=== PATIENT | male | born 1945 | race Caucasian/White ===

== ENCOUNTER 2017-03-23 21:49 | Inpatient (IN) | payer MEDICARE ==
[~2017-03-23] VITALS: Ht 172.7 cm; Wt 69.9 kg
[~2017-03-23 21:49] MED LIST: LOSA100T3 PO
[2017-03-23] MEDS ORDERED: NITROGLYCERIN 0.4 MG/TAB BOTTLE ONE (22:19)
--- NOTE | 2017-03-23 22:20 | NUR ---
PT ARRIVED WITH CHEST PAIN RADIATING TO LEFT ARM AND BACK. PAIN 4/10. PT STATES HE TOOK 700 MG OF ASPIRIN AT HOME. CONNECTED TO MONITOR, EKG DONE, IV STARTED AT RAC 20G AND LABS DRAWN.
--- NOTE | 2017-03-23 22:21 | NUR ---
PT GIVEN SL NITRO FOR CHEST PAIN RADIATING TO LEFT ARM AND BACK.
--- NOTE | 2017-03-23 22:26 | NUR ---
PT DENIES PAIN AFTER ONE NITRO DOSE.
[2017-03-23 22:29] LABS: BASOPHILS # (AUTO) 0.1 /CMM (0.0-0.2); BASOPHILS % (AUTO) 0.7 % (0.0-2.0); EOSINOPHILS # (AUTO) 0.8 /CMM (0.0-0.7); EOSINOPHILS % (AUTO) 8.1 % (0.0-6.0); HEMATOCRIT 42 % (39-51); HEMOGLOBIN 13.8 g/dL (13.5-17.5); LYMPHOCYTES # (AUTO) 3.1 /CMM (0.8-4.8); LYMPHOCYTES % (AUTO) 31.9 % (20.0-44.0); MEAN CORPUSCULAR HEMOGLOBIN 31 PG (26.0-33.0); MEAN CORPUSCULAR HGB CONC 33 g/dl (31.0-36.0); MEAN CORPUSCULAR VOLUME 93 fL (80-96); MONOCYTES # (AUTO) 0.7 /CMM (0.1-1.30); MONOCYTES % (AUTO) 6.9 % (2.0-12.0); NEUTROPHILS % (AUTO) 52.4 % (43.0-81.0); PLATELET COUNT (AUTO) 233 /CMM (150-450); RDW COEFFICIENT OF VARIATION 12.5 (11.5-15.0); RED BLOOD CELL COUNT(AUTO) 4.45 MIL/uL (4.5-6.0); WHITE BLOOD COUNT (AUTO) 9.6 K/uL (4.3-11.0)
[2017-03-23] MEDS ORDERED: NITROGLYCERIN 0.4 MG/TAB BOTTLE SL ONE (22:30)
[2017-03-23] MEDS ORDERED: ASPIRIN 325 MG TABLET PO ONE (22:30)
[2017-03-23 22:41] LABS: CALCIUM, SERUM 8.7 mg/dL (8.5-10.1); CARBON DIOXIDE 28 mmol/L (21-32); CHLORIDE 105 mmol/L (98-107); CREATININE 0.8 mg/dL (0.6-1.3); GLUCOSE 94 mg/dL (74-106); POTASSIUM 3.7 mmol/L (3.5-5.1); SODIUM SERUM 139 mmol/L (136-145); UREA NITROGEN, BLOOD 23 mg/dL (7-18)
[2017-03-23 22:50] LABS: D-DIMER < 0.19 mg/L(FEU (0.17-0.50); PARTIAL THROMBOPLASTIN TIME 27 SEC (23-34); PROTHROMBIN TIME 9.4 SECS (9.5-12.7); TROPONIN I 1.287 ng/mL (0.00-0.056)
--- NOTE | 2017-03-23 23:48 | NUR ---
PT REMAINS CALM AND WITHOUT PAIN AT THIS TIME. PT INSISTED ON WALKING TO BATHROOM EVEN AFTER EDUCATION OF RISKS OF FAINTING AND FALLING. ASSISTED TO BATHROOM WITHOUT INCIDENT.
--- NOTE | 2017-03-24 00:20 | NUR ---
REPORT GIVEN TO YOLIE RAVI.
[2017-03-24 00:30] VITALS: BP 90/53
[2017-03-24] MEDS ORDERED: ENOXAPARIN SODIUM 60 MG/0.6 ML DISP.SYRIN SQ ONE (00:30)
[2017-03-24] MEDS ORDERED: ENOXAPARIN SODIUM 80 MG/0.8 ML DISP.SYRIN SQ ONE (00:31)
[2017-03-24 00:35] VITALS: BP 90/53
--- NOTE | 2017-03-24 00:35 | NUR ---
RN NOTES RECEIVED PATIENT FROM ER FOR DX CHEST PAIN. AO X 3, ABLE TO MAKE NEEDS KNOW. NO ACUTE DISTRESS NOTED. SINUS RHYTHM HR 51. SKIN INTACT. DENIES ANY PAIN AT THIS TIME. ON LOW BED WITH BILATERAL UPPER SIDE RAILS UP. CALL LIGHT WITHIN EASY REACH. WILL CONTINUE TO MONITOR. WAITING FOR ADMISSION ORDERS.
--- NOTE | 2017-03-24 00:40 | NUR ---
PT TRANSPORTED TO ROOM 304-2 WITH ACLS PROTOCOL WITH EMT AND RN.
[2017-03-24] MEDS ORDERED: ACETAMINOPHEN 325 MG TABLET PO PRN (01:30)
[2017-03-24] MEDS ORDERED: MAGNESIUM HYDROXIDE 30 ML UDC PO PRN (01:30)
[2017-03-24] MEDS ORDERED: Z GUARD REMEDY 2 OZ OINT TP PRN (01:30)
[2017-03-24] MEDS ORDERED: ONDANSETRON HCL/PF 4 MG/2 ML VIAL IVP PRN (01:30)
[2017-03-24] MEDS ORDERED: MAG HYDROX/AL HYDROX/SIMETH 30 ML UDC PO PRN (01:30)
[2017-03-24] MEDS ORDERED: ZOLPIDEM TARTRATE 5 MG TABLET PO PRN (01:30)
[2017-03-24 04:00] VITALS: BP 98/55
--- NOTE | 2017-03-24 05:35 | NUR ---
RN NOTES RELAYED TROPONIN LEVEL 6.[address] DE GUZMAN WITH NEW ORDER FOR CTA OF CHEST FOR DISSECTION, NOTED AND CARRIED OUT.
[2017-03-24] MEDS ORDERED: HYDROCODONE/APAP 5/325MG 1 EACH TABLET ONE (05:45)
[2017-03-24] MEDS: HYDROCODONE/APAP 5/325MG 1 EACH TABLET PO PRN ×2 (05:52→10:19)
--- NOTE | 2017-03-24 06:19 | NUR ---
RN NOTES PATIENT AWAKE; RESPIRATIONS EVEN. NEEDS ATTENDED. NPO IN ANTICIPATION OF CTA OF CHEST. SAFETY PRECAUTIONS AND COMFORT MEASURES IN PLACE. WILL GIVE REPORT TO DAY SHIFT FOR CONTINUITY OF CARE.
--- NOTE | 2017-03-24 07:27 | NUR ---
ENVIRONMENTAL ENGINEERING ASSISTANT NOTES RECEIVED PATIENT IN BED AWAKE, A/OX4. NO ACUTE DISTRESS, NO SOB NOTED. DENIES PAIN OR DISCOMFORT. IV SITE INTACT AND PATENT. KEPT PATIENT SAFE AND COMFORTABLE. BED IN LOW POSITION, LOCKED, SIDERAILS UPX2. CALL LIGHT IN REACH. WILL CONTINUE TO MONITOR ACCORDINGLY. Addendum: 03/24/17 at 0739 by DRU MEEK NO CHEST PAIN NOTED. ON TELE SB 59 WITH PAC 1ST DEGREE AV BLOCK
[2017-03-24 08:00] VITALS: BP 90/53
[2017-03-24] MEDS ORDERED: LOSARTAN POTASSIUM 50 MG TABLET PO SCH (09:00)
[2017-03-24] MEDS ORDERED: IV NS 0.9% 1,000 ML IV PRN (09:24)
[2017-03-24] MEDS ORDERED: CARVEDILOL 3.125 MG TABLET PO SCH (09:30)
[2017-03-24] MEDS ORDERED: ASPIRIN 81 MG TAB.CHEW PO SCH (09:30)
[2017-03-24] MEDS ORDERED: ATORVASTATIN 40 MG TABLET PO SCH (09:30)
--- NOTE | 2017-03-24 09:40 | NUR ---
RN NOTES PER LEXI RAY TO GIVE MEDICATIONS.
[2017-03-24] MEDS ORDERED: POTASSIUM CHLORIDE 20 MEQ TAB.PRT.SR PO SCH (10:00)
--- NOTE | 2017-03-24 10:00 | NUR ---
RN NOTES DR FLETCHER ON BEDSIDE TALKING TO PATIENT. PATIENT IS STABLE, NO CHEST PAIN NOTED.
[2017-03-24 11:06] LABS: PHOSPHORUS 3.1 mg/dL (2.5-4.9)
[2017-03-24 11:17] LABS: THYROID STIMULATING HORMONE 0.878 uIU/mL (0.358-3.74)
--- NOTE | 2017-03-24 11:30 | NUR ---
RN NOTES NOTIFIED DR FLETCHER REGARDING ELEVATED TROPONIN LEVELS. WILL MONITOR ACCORDINGLY
[2017-03-24 12:00] VITALS: BP 98/51
[2017-03-24] MEDS ORDERED: ENOXAPARIN SODIUM 80 MG/0.8 ML DISP.SYRIN SQ SCH (12:00)
[2017-03-24 15:00] VITALS: BP 100/55
--- NOTE | 2017-03-24 15:15 | NUR ---
RN NOTES DISCHARGE PATIENT IN STABLE CONDITION ACCOMPANIED BY SHOE REPAIRMAN. DISCHARGE INSTRUCTIONS/TEACHING GIVEN, PATIENT VERBALIZED UNDERSTANDING. REPORT GIVEN TO BREONNA RODRIGUEZ FROM [facility]. D/C IV SITE, NO COMPLICATIONS, NO BLEEDING NOTED.
== END 2017-03-24 15:34 | disposition short-term general hospital (02) | DRG 280 ==
LOC: ER 21:51 → TELE 03-24 00:11
PROVIDERS: ADMIT Family Medicine; ATTEND Family Medicine
DX: I21.4 Non-ST elevation (NSTEMI) myocardial infarction (principal); N17.0 Acute kidney failure with tubular necrosis; N13.2 Hydronephrosis with renal and ureteral calculous obstruction; K76.89 Other specified diseases of liver; I10 Essential (primary) hypertension; N40.0 Benign prostatic hyperplasia without lower urinary tract symptoms; Z79.899 Other long term (current) drug therapy; Z98.890 Other specified postprocedural states; I44.0 Atrioventricular block, first degree; I25.10 Atherosclerotic heart disease of native coronary artery without angina pectoris; Z79.82 Long term (current) use of aspirin
CPT/HCPCS: 36415; 71010-TC; 80048-TC; 80061-TC; 83735-TC; 84100-TC; 84439-TC; 84443-TC; 84484-TC; 85025-TC; 85378-TC; 85730-TC; 87081-TC; J1650

== ENCOUNTER 2023-04-12 18:29 | Inpatient (IN) | payer MEDICARE ==
[~2023-04-12] VITALS: Ht 172.7 cm; Wt 59.0 kg
[2023-04-12] MEDS ORDERED: PANTOPRAZOLE 40 MG VIAL ONE ×2 (18:56→21:33)
[2023-04-12] MEDS ORDERED: IV NS 0.9% 1,000 ML BAG IV ONE (19:00)
[2023-04-12] MEDS ORDERED: PANTOPRAZOLE 40 MG VIAL IV ONE (19:00)
[2023-04-12] MEDS ORDERED: MORPHINE SULFATE INJ 2 MG/ML DISP.SYRIN IV ONE ×2 (20:00→21:00)
[2023-04-12] MEDS ORDERED: MORPHINE SULFATE INJ 2 MG/ML DISP.SYRIN ONE (20:00)
[2023-04-12 20:58] LABS: BASOPHILS % (AUTO) 0.1 % (0.0-2.0); LYMPHOCYTES # (AUTO) 1.3 K/uL (0.8-4.8); LYMPHOCYTES % (AUTO) 8.1 % (20.0-44.0); MEAN CORPUSCULAR HEMOGLOBIN 30 PG (26.0-33.0); MEAN CORPUSCULAR HGB CONC 32 g/dl (31.0-36.0); MEAN CORPUSCULAR VOLUME 93 fL (80-96); MONOCYTES # (AUTO) 0.8 K/uL (0.1-1.30); MONOCYTES % (AUTO) 4.9 % (2.0-12.0); NEUTROPHILS # (AUTO) 14.4 K/uL (1.8-8.9); NEUTROPHILS % (AUTO) 86.9 % (43.0-81.0); PLATELET COUNT (AUTO) 150 K/uL (150-450); RED CELL DISTRIBUTION WIDTH 13.9 % (11.5-15.0); WHITE BLOOD COUNT (AUTO) 16.6 K/uL (4.3-11.0)
[2023-04-12 21:08] LABS: CARBON DIOXIDE 27 mmol/L (21-32); CHLORIDE 107 mmol/L (98-107); GLUCOSE 163 mg/dL (74-106); POTASSIUM 4.1 mmol/L (3.5-5.1); SODIUM SERUM 140 mmol/L (136-145); UREA NITROGEN, BLOOD 45 mg/dL (7-18)
[2023-04-12] MEDS ORDERED: MORPHINE SULFATE INJ 4 MG/ML DISP.SYRIN ONE (21:08)
[2023-04-12 21:14] LABS: ALANINE AMINOTRANSFERASE 14 U/L (12-78); ALBUMIN 2.7 g/dL (3.4-5.0); ALKALINE PHOSPHATASE 52 U/L (46-116); ASPARTATE AMINOTRANSFERASE 12 U/L (15-37); BILIRUBIN,DIRECT 0.2 mg/dL (0.0-0.2); LIPASE 14 U/L (16-77); TOTAL PROTEIN, SERUM 5.1 g/dL (6.4-8.2)
[2023-04-12 21:17] LABS: RED BLOOD CELL COUNT(AUTO) 1.92 MIL/uL (4.5-6.0)
[2023-04-12 21:18] LABS: HEMATOCRIT 18 % (39-51); HEMOGLOBIN 5.7 g/dL (13.5-17.5)
[2023-04-12 21:22] LABS: INR 1.11 (0.91-1.10); PARTIAL THROMBOPLASTIN TIME 21.5 SEC (24.3-34.3); PROTHROMBIN TIME 11.7 SECS (9.2-11.1)
[2023-04-12] MEDS ORDERED: METRONIDAZOLE 500MG/ NS 100ML 100 ML IV ONE (21:30)
[2023-04-12] MEDS ORDERED: OCTREOTIDE 1,250 MCG in IV NS 0.9% 250 ML IV ONE (21:30)
[2023-04-12] MEDS ORDERED: METOCLOPRAMIDE HCL 10 MG/2 ML VIAL IV ONE (21:30)
[2023-04-12] MEDS ORDERED: PANTOPRAZOLE 80 MG in IV NS 0.9% 100 ML IV ONE (21:30)
[2023-04-12] MEDS ORDERED: CEFTRIAXONE 1 G in IV D5W 50 ML IV ONE (21:30)
[2023-04-12] MEDS ORDERED: METOCLOPRAMIDE HCL 10 MG/2 ML VIAL ONE (21:31)
[2023-04-12] MEDS ORDERED: CEFTRIAXONE 1GM BAG (ER ONLY) 50 ML IV ONE (21:33)
[2023-04-12 21:39] LABS: BAND % (MANUAL) 1 % (0.0-5.0); LYMPHOCYTES % (MANUAL) 8 % (16-48); MONOCYTES % (MANUAL) 4 % (0-11.0); NEUTROPHILS % (MANUAL) 86 (42-76); REACTIVE LYMPHOCYTES 1 % (0-0)
[2023-04-12 21:40] LABS: ANISOCYTOSIS 1+; PLATELET ESTIMATE ADEQUATE
[2023-04-12] MEDS ORDERED: IV NS 0.9% 1,000 ML IV ONE (22:00)
[2023-04-12] MEDS ORDERED: OCTREOTIDE 100 MCG/ML VIAL ONE ×3 (22:09→22:26)
[2023-04-12] MEDS ORDERED: OCTREOTIDE 500 MCG/ML VIAL ONE (22:10)
[2023-04-12] MEDS ORDERED: ONDANSETRON HCL/PF 4 MG/2 ML VIAL IVP PRN (22:30)
[2023-04-12] MEDS ORDERED: OCTREOTIDE 50 MCG in IV NS 0.9% 50 ML IJ ONE (22:30)
[2023-04-12] MEDS ORDERED: PANTOPRAZOLE 80 MG in IV NS 0.9% 500 ML IV PRN (22:30)
[2023-04-12] MEDS ORDERED: MAG HYDROX/AL HYDROX/SIMETH 30 ML UDC PO PRN (22:30)
[2023-04-12] MEDS ORDERED: Z GUARD REMEDY 4 OZ OINT TP PRN (22:30)
[2023-04-12 23:30] VITALS: BP 122/62; O2SAT 97
[2023-04-12] MEDS: IV D5/0.45 NACL 1,000 ML IV PRN (23:37)
[2023-04-12 23:45] VITALS: BP 126/65; O2SAT 98
[2023-04-13] VITALS (77 sets, daily range): BP systolic 100–164; BP diastolic 45–77; TEMP 97.3–99.1; O2SAT 95–99
[2023-04-13] MEDS: OCTREOTIDE 1,250 MCG in IV NS 0.9% 247.5 ML IV PRN ×2 (00:29→11:09)
[2023-04-13] MEDS: MORPHINE SULFATE INJ 2 MG/ML DISP.SYRIN IV PRN ×4 (02:40→19:51)
[2023-04-13] MEDS ORDERED: METRONIDAZOLE 500MG/ NS 100ML 100 ML IV ONE (05:30)
[2023-04-13] MEDS: METRONIDAZOLE 500MG/ NS 100ML 500 MG in PREMIX 1 EA IV SCH ×3 (05:39→20:39)
[2023-04-13 05:46] LABS: BASOPHILS % (AUTO) 0.2 % (0.0-2.0); LYMPHOCYTES # (AUTO) 1.5 K/uL (0.8-4.8); LYMPHOCYTES % (AUTO) 11.8 % (20.0-44.0); MEAN CORPUSCULAR HEMOGLOBIN 30 PG (26.0-33.0); MEAN CORPUSCULAR HGB CONC 33 g/dl (31.0-36.0); MEAN CORPUSCULAR VOLUME 92 fL (80-96); MONOCYTES # (AUTO) 0.9 K/uL (0.1-1.30); MONOCYTES % (AUTO) 7.5 % (2.0-12.0); NEUTROPHILS # (AUTO) 10.1 K/uL (1.8-8.9); NEUTROPHILS % (AUTO) 80.5 % (43.0-81.0); PLATELET COUNT (AUTO) 115 K/uL (150-450); RED CELL DISTRIBUTION WIDTH 13.7 % (11.5-15.0); WHITE BLOOD COUNT (AUTO) 12.6 K/uL (4.3-11.0)
[2023-04-13 05:47] LABS: RED BLOOD CELL COUNT(AUTO) 1.99 MIL/uL (4.5-6.0)
[2023-04-13 05:49] LABS: CALCIUM, SERUM 7.4 mg/dL (8.5-10.1); CARBON DIOXIDE 26 mmol/L (21-32); CHLORIDE 109 mmol/L (98-107); CREATININE 0.7 mg/dL (0.6-1.3); GLUCOSE 182 mg/dL (74-106); PHOSPHORUS 3.6 mg/dL (2.5-4.9); POTASSIUM 4.2 mmol/L (3.5-5.1); SODIUM SERUM 142 mmol/L (136-145); UREA NITROGEN, BLOOD 38 mg/dL (7-18)
[2023-04-13 05:51] LABS: HEMATOCRIT 18 % (39-51)
[2023-04-13 10:48] LABS: ANISOCYTOSIS 1+; BAND % (MANUAL) 2 % (0.0-5.0); BASOPHILS % (MANUAL) 0 % (0.0-2.0); EOSINOPHILS % (MANUAL) 0 % (0-4); HYPOCHROMASIA 1+; LYMPHOCYTES % (MANUAL) 14 % (16-48); MONOCYTES % (MANUAL) 8 % (0-11.0); NEUTROPHILS % (MANUAL) 76 (42-76); PLATELET ESTIMATE DECREASED
[2023-04-13] MEDS: PANTOPRAZOLE 40 MG VIAL IV SCH ×2 (11:08→20:39)
[2023-04-13] MEDS ORDERED: CLOP75TA15 PO (11:11)
[2023-04-13] MEDS ORDERED: AMLO-212 PO (11:28)
[2023-04-13] MEDS ORDERED: CARV25TA2 PO (11:28)
[2023-04-13] MEDS ORDERED: ATOR40TA PO (11:28)
[2023-04-13] MEDS ORDERED: TRAZ-182 PO (11:28)
[2023-04-13] MEDS ORDERED: ESCI5TAB PO (11:28)
[2023-04-13 16:23] LABS: HEMOGLOBIN 6.2 g/dL (13.5-17.5)
[2023-04-13] MEDS: IV D5/0.45 NACL 1,000 ML IV PRN (16:53)
[2023-04-13] MEDS ORDERED: ANESTHESIA TRAY IN PYXIS 1 EA TRAY MC ONE (17:32)
[2023-04-13] MEDS ORDERED: EPINEPHRINE (1:1000) 1 MG/ML AMPUL ONE (18:19)
[2023-04-13] MEDS ORDERED: EPINEPHRINE (1:10,000) SYRINGE 1 MG/10 ML DISP.SYRIN ONE (18:19)
[2023-04-13 21:38] LABS: HEMOGLOBIN 7.5 g/dL (13.5-17.5)
[2023-04-13] MEDS: LORAZEPAM INJ 2 MG/ML VIAL IV PRN (22:30)
[2023-04-13] MEDS: CEFTRIAXONE 1 G in IV D5W 50 ML IV SCH (22:35)
[2023-04-14] VITALS (30 sets, daily range): BP systolic 114–167; BP diastolic 54–71; TEMP 98–98.6; O2SAT 96–99
[2023-04-14] MEDS ORDERED: CELLULOSE,OXIDIZED 1 PKT EACH MC ONE (01:00)
[2023-04-14] MEDS: MORPHINE SULFATE INJ 2 MG/ML DISP.SYRIN IV PRN ×4 (01:32→20:20)
[2023-04-14 05:21] LABS: CALCIUM, SERUM 7.7 mg/dL (8.5-10.1); CREATININE 0.7 mg/dL (0.6-1.3); POTASSIUM 3.9 mmol/L (3.5-5.1)
[2023-04-14 05:36] LABS: BASOPHILS # (AUTO) 0.1 K/uL (0.0-0.2); BASOPHILS % (AUTO) 0.6 % (0.0-2.0); EOSINOPHILS % (AUTO) 0.3 % (0.0-6.0); HEMATOCRIT 23 % (39-51); HEMOGLOBIN 7.6 g/dL (13.5-17.5); LYMPHOCYTES # (AUTO) 1.6 K/uL (0.8-4.8); LYMPHOCYTES % (AUTO) 16.4 % (20.0-44.0); MEAN CORPUSCULAR HEMOGLOBIN 30 PG (26.0-33.0); MEAN CORPUSCULAR HGB CONC 33 g/dl (31.0-36.0); MEAN CORPUSCULAR VOLUME 90 fL (80-96); MONOCYTES # (AUTO) 1.1 K/uL (0.1-1.30); MONOCYTES % (AUTO) 11.4 % (2.0-12.0); NEUTROPHILS # (AUTO) 7.1 K/uL (1.8-8.9); NEUTROPHILS % (AUTO) 71.3 % (43.0-81.0); PLATELET COUNT (AUTO) 92 K/uL (150-450); RED BLOOD CELL COUNT(AUTO) 2.55 MIL/uL (4.5-6.0); RED CELL DISTRIBUTION WIDTH 14.8 % (11.5-15.0)
[2023-04-14] MEDS: METRONIDAZOLE 500MG/ NS 100ML 500 MG in PREMIX 1 EA IV SCH ×3 (05:37→19:52)
[2023-04-14] MEDS: PANTOPRAZOLE 40 MG VIAL IV SCH ×2 (07:58→20:19)
[2023-04-14] MEDS: IV D5/0.45 NACL 1,000 ML IV PRN (07:58)
[2023-04-14 09:56] LABS: HEMOGLOBIN 7.7 g/dL (13.5-17.5)
[2023-04-14 10:16] LABS: ANISOCYTOSIS 1+; BAND % (MANUAL) 2 % (0.0-5.0); BASOPHILS % (MANUAL) 0 % (0.0-2.0); EOSINOPHILS % (MANUAL) 0 % (0-4); LYMPHOCYTES % (MANUAL) 14 % (16-48); MONOCYTES % (MANUAL) 10 % (0-11.0); NEUTROPHILS % (MANUAL) 74 (42-76); PLATELET ESTIMATE DECREASED
[2023-04-14] MEDS: CEFTRIAXONE 1 G in IV D5W 50 ML IV SCH (21:02)
[2023-04-14] MEDS: ZOLPIDEM TARTRATE 5 MG TABLET PO PRN (22:03)
[2023-04-15] VITALS (13 sets, daily range): BP systolic 123–142; BP diastolic 53–74; TEMP 98.1–98.8; O2SAT 96–98
[2023-04-15] MEDS: IV D5/0.45 NACL 1,000 ML IV PRN ×2 (00:13→16:23)
[2023-04-15] MEDS: LORAZEPAM INJ 2 MG/ML VIAL IV PRN ×2 (01:06→16:40)
[2023-04-15 05:00] LABS: BASOPHILS # (AUTO) 0.1 K/uL (0.0-0.2); BASOPHILS % (AUTO) 0.7 % (0.0-2.0); EOSINOPHILS # (AUTO) 0.3 K/uL (0.0-0.7); EOSINOPHILS % (AUTO) 3.1 % (0.0-6.0); HEMATOCRIT 21 % (39-51); LYMPHOCYTES # (AUTO) 2.1 K/uL (0.8-4.8); LYMPHOCYTES % (AUTO) 23.1 % (20.0-44.0); MEAN CORPUSCULAR HEMOGLOBIN 31 PG (26.0-33.0); MEAN CORPUSCULAR HGB CONC 33 g/dl (31.0-36.0); MEAN CORPUSCULAR VOLUME 93 fL (80-96); MONOCYTES # (AUTO) 0.9 K/uL (0.1-1.30); MONOCYTES % (AUTO) 10.4 % (2.0-12.0); NEUTROPHILS # (AUTO) 5.6 K/uL (1.8-8.9); NEUTROPHILS % (AUTO) 62.7 % (43.0-81.0); PLATELET COUNT (AUTO) 102 K/uL (150-450); RED CELL DISTRIBUTION WIDTH 14.6 % (11.5-15.0); WHITE BLOOD COUNT (AUTO) 8.9 K/uL (4.3-11.0)
[2023-04-15 05:25] LABS: CALCIUM, SERUM 7.6 mg/dL (8.5-10.1); CARBON DIOXIDE 25 mmol/L (21-32); CHLORIDE 107 mmol/L (98-107); CREATININE 0.6 mg/dL (0.6-1.3); GLUCOSE 102 mg/dL (74-106); POTASSIUM 3.3 mmol/L (3.5-5.1); SODIUM SERUM 139 mmol/L (136-145); UREA NITROGEN, BLOOD 11 mg/dL (7-18)
[2023-04-15] MEDS: METRONIDAZOLE 500MG/ NS 100ML 500 MG in PREMIX 1 EA IV SCH (05:35)
[2023-04-15] MEDS: PANTOPRAZOLE 40 MG VIAL IV SCH ×2 (08:28→20:56)
[2023-04-15] MEDS: POTASSIUM CL. PREMIX PERIPHER. 50 ML IV SCH ×2 (08:29→09:41)
[2023-04-15] MEDS: METRONIDAZOLE 500 MG TABLET PO SCH ×2 (13:09→20:56)
[2023-04-15] MEDS: MORPHINE SULFATE INJ 2 MG/ML DISP.SYRIN IV PRN (16:25)
[2023-04-15] MEDS: CEFTRIAXONE 1 G in IV D5W 50 ML IV SCH (21:20)
[2023-04-15] MEDS: ZOLPIDEM TARTRATE 5 MG TABLET PO PRN (23:24)
[2023-04-16] VITALS: BP 126/62; TEMP 98.2; O2SAT 98
[2023-04-16 04:00] VITALS: BP 133/66; TEMP 98.7; O2SAT 98
[2023-04-16] MEDS: METRONIDAZOLE 500 MG TABLET PO SCH ×3 (04:12→21:09)
[2023-04-16 05:53] LABS: BASOPHILS % (AUTO) 0.6 % (0.0-2.0); EOSINOPHILS # (AUTO) 0.2 K/uL (0.0-0.7); EOSINOPHILS % (AUTO) 3.2 % (0.0-6.0); HEMATOCRIT 22 % (39-51); HEMOGLOBIN 7.3 g/dL (13.5-17.5); LYMPHOCYTES # (AUTO) 1.1 K/uL (0.8-4.8); LYMPHOCYTES % (AUTO) 15.7 % (20.0-44.0); MEAN CORPUSCULAR HEMOGLOBIN 30 PG (26.0-33.0); MEAN CORPUSCULAR HGB CONC 33 g/dl (31.0-36.0); MEAN CORPUSCULAR VOLUME 91 fL (80-96); MONOCYTES # (AUTO) 0.7 K/uL (0.1-1.30); MONOCYTES % (AUTO) 9.8 % (2.0-12.0); NEUTROPHILS % (AUTO) 70.7 % (43.0-81.0); PLATELET COUNT (AUTO) 127 K/uL (150-450); RED BLOOD CELL COUNT(AUTO) 2.43 MIL/uL (4.5-6.0); WHITE BLOOD COUNT (AUTO) 7.1 K/uL (4.3-11.0)
[2023-04-16 06:12] LABS: CALCIUM, SERUM 7.5 mg/dL (8.5-10.1); CARBON DIOXIDE 26 mmol/L (21-32); CHLORIDE 104 mmol/L (98-107); CREATININE 0.6 mg/dL (0.6-1.3); GLUCOSE 89 mg/dL (74-106); POTASSIUM 2.9 mmol/L (3.5-5.1); SODIUM SERUM 138 mmol/L (136-145); UREA NITROGEN, BLOOD 6 mg/dL (7-18)
[2023-04-16] MEDS ORDERED: POTASSIUM CL. PREMIX PERIPHER. 50 ML IV SCH (07:00)
[2023-04-16] MEDS ORDERED: POTASSIUM CHLORIDE 20 MEQ POWDER PACKET PO ONE (07:00)
[2023-04-16 08:00] VITALS: BP 142/69; TEMP 97.2; O2SAT 99
[2023-04-16] MEDS: PANTOPRAZOLE 40 MG VIAL IV SCH ×2 (08:24→21:01)
[2023-04-16 12:00] VITALS: BP 131/64; TEMP 98.4; O2SAT 99
[2023-04-16 16:00] VITALS: BP 131/70; TEMP 98.1; O2SAT 100
[2023-04-16] MEDS: IV D5/0.45 NACL 1,000 ML IV PRN (16:25)
[2023-04-16] MEDS: MORPHINE SULFATE INJ 2 MG/ML DISP.SYRIN IV PRN ×2 (16:28→21:53)
[2023-04-16 20:00] VITALS: BP 135/68; TEMP 98.5; O2SAT 100
[2023-04-16] MEDS: CEFTRIAXONE 1 G in IV D5W 50 ML IV SCH (21:10)
[2023-04-16] MEDS: ZOLPIDEM TARTRATE 5 MG TABLET PO PRN (21:16)
[2023-04-17 01:25] VITALS: BP 120/61; TEMP 99.1; O2SAT 97
[2023-04-17] MEDS: MORPHINE SULFATE INJ 2 MG/ML DISP.SYRIN IV PRN ×2 (01:56→09:34)
[2023-04-17 04:11] VITALS: BP 133/64; TEMP 99.2; O2SAT 97
[2023-04-17] MEDS: METRONIDAZOLE 500 MG TABLET PO SCH ×2 (05:31→12:10)
[2023-04-17 07:17] LABS: BASOPHILS % (AUTO) 0.4 % (0.0-2.0); EOSINOPHILS # (AUTO) 0.5 K/uL (0.0-0.7); EOSINOPHILS % (AUTO) 8.1 % (0.0-6.0); HEMATOCRIT 22 % (39-51); HEMOGLOBIN 7.2 g/dL (13.5-17.5); LYMPHOCYTES # (AUTO) 1.3 K/uL (0.8-4.8); LYMPHOCYTES % (AUTO) 21.3 % (20.0-44.0); MEAN CORPUSCULAR HEMOGLOBIN 30 PG (26.0-33.0); MEAN CORPUSCULAR HGB CONC 33 g/dl (31.0-36.0); MEAN CORPUSCULAR VOLUME 91 fL (80-96); MONOCYTES # (AUTO) 0.7 K/uL (0.1-1.30); MONOCYTES % (AUTO) 11.5 % (2.0-12.0); NEUTROPHILS # (AUTO) 3.5 K/uL (1.8-8.9); NEUTROPHILS % (AUTO) 58.7 % (43.0-81.0); PLATELET COUNT (AUTO) 131 K/uL (150-450); RED BLOOD CELL COUNT(AUTO) 2.37 MIL/uL (4.5-6.0); RED CELL DISTRIBUTION WIDTH 15.8 % (11.5-15.0); WHITE BLOOD COUNT (AUTO) 5.9 K/uL (4.3-11.0)
[2023-04-17 07:31] LABS: CREATININE 0.6 mg/dL (0.6-1.3); POTASSIUM 3.2 mmol/L (3.5-5.1)
[2023-04-17 08:00] VITALS: BP 126/63; TEMP 98.8; O2SAT 98
[2023-04-17 08:02] LABS: CALCIUM, SERUM 7.3 mg/dL (8.5-10.1)
[2023-04-17] MEDS ORDERED: PANT40TA2 PO (08:28)
[2023-04-17] MEDS ORDERED: POTASSIUM CHLORIDE 20 MEQ TAB.PRT.SR PO ONE (08:30)
[2023-04-17] MEDS ORDERED: FERR325T23 PO (08:30)
[2023-04-17] MEDS: PANTOPRAZOLE 40 MG VIAL IV SCH (08:57)
[2023-04-17] MEDS ORDERED: ENSURE ENLIVE 237 ML LIQUID (VANILLA) PO SCH (09:00)
[2023-04-17 12:00] VITALS: BP 129/78; TEMP 98.6; O2SAT 98
[2023-04-17] MEDS ORDERED: POTASSIUM CHLORIDE 20 MEQ POWDER PACKET PO ONE (12:00)
== END 2023-04-17 12:50 | disposition home or self-care (01) | DRG 378 ==
LOC: ER 18:37 → ICU 22:42 → TELE1 04-15 09:11
PROVIDERS: ADMIT Nurse Practitioner Acute Care; ATTEND Internal Medicine
PROC: 30233N1 Transfusion of Nonautologous Red Blood Cells into Peripheral Vein, Percutaneous Approach (ICD-10-PCS; principal; 2023-04-12)
PROC: 30233K1 Transfusion of Nonautologous Frozen Plasma into Peripheral Vein, Percutaneous Approach (ICD-10-PCS; 2023-04-12)
PROC: 0W3P8ZZ Control Bleeding in Gastrointestinal Tract, Via Natural or Artificial Opening Endoscopic (ICD-10-PCS; 2023-04-13)
PROC: 0DB68ZX Excision of Stomach, Via Natural or Artificial Opening Endoscopic, Diagnostic (ICD-10-PCS; 2023-04-13)
DX: K26.4 Chronic or unspecified duodenal ulcer with hemorrhage (principal); D62 Acute posthemorrhagic anemia; K80.20 Calculus of gallbladder without cholecystitis without obstruction; I25.2 Old myocardial infarction; K29.70 Gastritis, unspecified, without bleeding; I10 Essential (primary) hypertension; Z98.890 Other specified postprocedural states; Z79.899 Other long term (current) drug therapy; Z79.01 Long term (current) use of anticoagulants; Z79.02 Long term (current) use of antithrombotics/antiplatelets; E78.5 Hyperlipidemia, unspecified; K44.9 Diaphragmatic hernia without obstruction or gangrene; D69.6 Thrombocytopenia, unspecified; I25.10 Atherosclerotic heart disease of native coronary artery without angina pectoris
CPT/HCPCS: 36415; 71045-TC; 80048-TC; 80076-TC; 83690-TC; 83735-TC; 84100-TC; 85025-TC; 85027-TC; 85730-TC; 86850-TC; 97110-TC; 97116-TC; 97530-TC; A4216; A4223; C9113; G0378; J0171; J0696; J2060; J2270; J2354; J2405; J2704; J2765; J3480; J3490; J7030; J7040; J7050; J7060; P9016; P9017

== ENCOUNTER 2023-05-07 23:56 | Inpatient (IN) | payer MEDICARE ==
[~2023-05-07] VITALS: Ht 172.7 cm; Wt 54.9 kg
[~2023-05-07 23:56] MED LIST changes: +AMLO-212 PO; +ATOR40TA PO; +CARV25TA2 PO; +ESCI5TAB PO; +FERR325T23 PO; +PANT40TA2 PO; +TRAZ-182 PO
[2023-05-08] MEDS ORDERED: PANTOPRAZOLE 80 MG in IV NS 0.9% 100 ML IV ONE (01:00)
[2023-05-08] MEDS ORDERED: PANTOPRAZOLE 80 MG in IV NS 0.9% 500 ML IV ONE (01:00)
[2023-05-08] MEDS ORDERED: PANTOPRAZOLE 40 MG VIAL ONE ×2 (01:01→01:15)
[2023-05-08 01:13] LABS: BASOPHILS % (AUTO) 0.4 % (0.0-2.0); EOSINOPHILS # (AUTO) 0.2 K/uL (0.0-0.7); EOSINOPHILS % (AUTO) 4.8 % (0.0-6.0); HEMATOCRIT 33 % (39-51); HEMOGLOBIN 10.6 g/dL (13.5-17.5); LYMPHOCYTES # (AUTO) 0.9 K/uL (0.8-4.8); LYMPHOCYTES % (AUTO) 23.4 % (20.0-44.0); MEAN CORPUSCULAR HEMOGLOBIN 30 PG (26.0-33.0); MEAN CORPUSCULAR HGB CONC 32 g/dl (31.0-36.0); MEAN CORPUSCULAR VOLUME 94 fL (80-96); MONOCYTES % (AUTO) 25.7 % (2.0-12.0); NEUTROPHILS # (AUTO) 1.8 K/uL (1.8-8.9); NEUTROPHILS % (AUTO) 45.7 % (43.0-81.0); PLATELET COUNT (AUTO) 221 K/uL (150-450); RED BLOOD CELL COUNT(AUTO) 3.52 MIL/uL (4.5-6.0); RED CELL DISTRIBUTION WIDTH 16.3 % (11.5-15.0)
[2023-05-08 01:16] LABS: CALCIUM, SERUM 9.3 mg/dL (8.5-10.1); CARBON DIOXIDE 23 mmol/L (21-32); CHLORIDE 98 mmol/L (98-107); CREATININE 1.2 mg/dL (0.6-1.3); GLUCOSE 96 mg/dL (74-106); POTASSIUM 3.9 mmol/L (3.5-5.1); SODIUM SERUM 132 mmol/L (136-145); UREA NITROGEN, BLOOD 26 mg/dL (7-18)
[2023-05-08 01:20] LABS: INR 0.95 (0.91-1.10); PARTIAL THROMBOPLASTIN TIME 38.4 SEC (24.3-34.3); PROTHROMBIN TIME 10.1 SECS (9.2-11.1)
[2023-05-08 01:23] LABS: ALBUMIN 3.1 g/dL (3.4-5.0); ALKALINE PHOSPHATASE 93 U/L (46-116); ASPARTATE AMINOTRANSFERASE 10 U/L (15-37); BILIRUBIN,DIRECT 0.3 mg/dL (0.0-0.2); BILIRUBIN,TOTAL 0.9 mg/dL (0.2-1.0); TOTAL PROTEIN, SERUM 7.6 g/dL (6.4-8.2)
[2023-05-08 02:08] LABS: ALANINE AMINOTRANSFERASE 16 U/L (12-78)
[2023-05-08 02:50] LABS: ANISOCYTOSIS 1+; BAND % (MANUAL) 2 % (0.0-5.0); BASOPHILS % (MANUAL) 0 % (0.0-2.0); EOSINOPHILS % (MANUAL) 5 % (0-4); LYMPHOCYTES % (MANUAL) 16 % (16-48); MONOCYTES % (MANUAL) 21 % (0-11.0); NEUTROPHILS % (MANUAL) 56 (42-76); PLATELET ESTIMATE ADEQUATE
[2023-05-08] MEDS ORDERED: ACETAMINOPHEN 325 MG TABLET ONE (04:55)
[2023-05-08] MEDS ORDERED: ACETAMINOPHEN 325 MG TABLET PO ONE (05:00)
[2023-05-08] MEDS ORDERED: ONDANSETRON HCL/PF 4 MG/2 ML VIAL IVP PRN (07:00)
[2023-05-08] MEDS ORDERED: IV D5/0.45 NACL 1,000 ML IV PRN (07:00)
[2023-05-08] MEDS ORDERED: ZOLPIDEM TARTRATE 5 MG TABLET PO PRN (07:00)
[2023-05-08] MEDS ORDERED: MAGNESIUM HYDROXIDE 30 ML UDC PO PRN (07:00)
[2023-05-08] MEDS ORDERED: MAG HYDROX/AL HYDROX/SIMETH 30 ML UDC PO PRN (07:00)
[2023-05-08] MEDS ORDERED: Z GUARD REMEDY 4 OZ OINT TP PRN (07:00)
[2023-05-08] MEDS ORDERED: ACETAMINOPHEN 325 MG TABLET PO PRN (07:00)
[2023-05-08] MEDS ORDERED: FERR325T23 PO (07:48)
[2023-05-08] MEDS ORDERED: PANT40TA2 PO (07:48)
[2023-05-08 08:17] LABS: HEMOGLOBIN 10.6 g/dL (13.5-17.5)
[2023-05-08 13:00] VITALS: BP 118/55; TEMP 98; O2SAT 99
== END 2023-05-08 15:55 | disposition home or self-care (01) | DRG 812 ==
LOC: ER 23:57 → MEDSG1 05-08 07:58
PROVIDERS: ADMIT Student in an Organized Health Care Education/Training Program; ATTEND Student in an Organized Health Care Education/Training Program
DX: D50.0 Iron deficiency anemia secondary to blood loss (chronic) (principal); E87.1 Hypo-osmolality and hyponatremia; I10 Essential (primary) hypertension; Z98.890 Other specified postprocedural states; Z79.899 Other long term (current) drug therapy; Z87.19 Personal history of other diseases of the digestive system; E78.5 Hyperlipidemia, unspecified; I25.10 Atherosclerotic heart disease of native coronary artery without angina pectoris
CPT/HCPCS: 36415; 71045-TC; 80048-TC; 80076-TC; 84484-TC; 85025-TC; 85027-TC; 85730-TC; 86850-TC; A4223; C9113; G0378; J3490; J7030; J7040